=== PATIENT | female | born 1960 | race African-American/Black ===

== ENCOUNTER 2017-05-07 10:10 | Emergency (ER) | payer OTHER ==
[~2017-05-07] VITALS: Ht 170.2 cm; Wt 90.7 kg
[2017-05-07] MEDS ORDERED: OMEPRAZOLE40 MG PO (10:24)
[2017-05-07] MEDS ORDERED: LOSARTAN-HCTZ1 EAC1 PO (10:24)
[2017-05-07] MEDS ORDERED: CYCLOBENZAPRINE5 MG PO (10:58)
[2017-05-07] MEDS ORDERED: PREDNISONE 20 M20 MG PO (10:58)
[2017-05-07] MEDS ORDERED: ULTRAM 50MG TAB50 MG PO (11:50)
[2017-05-07 12:06] VITALS: BP 135/71
== END 2017-05-07 12:08 | disposition home or self-care (01) ==
LOC: ER 10:10
DX: M43.6 Torticollis (principal); M54.12 Radiculopathy, cervical region; K21.9 Gastro-esophageal reflux disease without esophagitis; Z88.5 Allergy status to narcotic agent

== ENCOUNTER 2018-06-22 13:53 | Emergency (ER) | payer OTHER ==
[~2018-06-22] VITALS: Ht 167.6 cm; Wt 103.0 kg
[~2018-06-22 13:53] MED LIST: CYCLOBENZAPRINE5 MG PO; LOSARTAN-HCTZ1 EAC1 PO; OMEPRAZOLE40 MG PO; PREDNISONE 20 M20 MG PO; ULTRAM 50MG TAB50 MG PO
[2018-06-22 14:35] LABS: ABSOLUTE NEUTROPHILS 4.1 thou/uL (1.4-8.2); BASOPHILS 0.7 % (0.0-2.0); EOSINOPHILS 2.1 % (0.0-3.0); HEMATOCRIT 39.3 % (37.0-47.0); LYMPHOCYTES 28.4 % (24.0-44.0); MCHC 32.9 g/dL (28.0-37.0); MCV 87.9 fL (80.0-100.0); MONOCYTES 10.3 % (1.0-8.0); PLATELET COUNT 257 thou/uL (150-400); POLYS 58.5 % (36.0-66.0); RBC 4.47 mil/uL (4.20-5.00); RDW 13.3 % (10.5-14.5)
[2018-06-22 14:43] LABS: ANION GAP 9 mmol/L (7-16); BUN 11 mg/dL (7-18); CALCIUM 9.4 mg/dL (8.5-10.1); CHLORIDE 104 mmol/L (98-107); CO2 29 mmol/L (21-32); CREATININE 0.7 mg/dL (0.6-1.0); GLUCOSE 122 mg/dL (74-106); POTASSIUM 3.4 mmol/L (3.5-5.1); SODIUM 142 mmol/L (136-145)
[2018-06-22 14:52] LABS: TROPONIN-I <0.06 ng/mL (<0.06)
[2018-06-22] MEDS ORDERED: MOBIC7.5 MG PO (16:51)
[2018-06-22] MEDS ORDERED: ULTRAM 50MG TAB50 MG PO (16:51)
[2018-06-22 17:10] VITALS: BP 119/73
--- NOTE | 2018-06-22 19:18 | EKG ---
[address] [place] [address] [employer] [place] [address] ELECTROCARDIOGRAM REPORT Name: TONYA BENSON Room #: DEP Maribel#: [id number] ������������������ Admission: 06/22/18 ������������������ Attend Phys: Discharge: 06/22/18 ������������������ Date of : 58 Report #: [id number] ����������������������������������������������������������������� [id number] THIS REPORT FOR: //name// 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: [place] : 1960 Requested By: Moiz Gooden Order Number: [id number] MD: Hebert Willard Measurements Intervals [place] Rate: 66 P: 38 [place]: 175 QRS: -24 QRSD: 93 T: 60 QT: 400 QTc: 420 Interpretive Statements Sinus rhythm Left ventricular hypertrophy Compared to ECG 10/19/2001 06:53:14 Left ventricular hypertrophy now present Electronically Signed On 06-22-2018 19:18:32 CDT by Hebert Willard [email or web address] ��������������������������������������������� <ELECTRONICALLY SIGNED> ���������������������������������������� By: Hebert Willard MD, [facility] ��������������������������������������������� 06/22/18 1918 1405 1405 Hebert Willard MD, FACC /EPI
== END 2018-06-22 17:11 | disposition home or self-care (01) ==
LOC: ER 13:53
PROVIDERS: Emergency Medicine
DX: R07.89 Other chest pain (principal); K21.9 Gastro-esophageal reflux disease without esophagitis; Z88.5 Allergy status to narcotic agent